=== PATIENT | female | born 2000 | race Caucasian/White ===

== ENCOUNTER 2023-04-28 16:54 | Emergency (ER) | payer OTHER ==
[2023-04-28 17:06] VITALS: BP 115/75; PULSE 87; RESP 20; TEMP 98.6; BMI 31.6
== END 2023-04-28 20:14 | disposition home or self-care (01) ==
LOC: JERFT 16:54
DX: S80.01XA Contusion of right knee, initial encounter (principal); S80.02XA Contusion of left knee, initial encounter; S59.901A Unspecified injury of right elbow, initial encounter; W19.XXXA Unspecified fall, initial encounter; Y93.9 Activity, unspecified; Y92.9 Unspecified place or not applicable
CPT/HCPCS: 73562-TC-LT-FY; 73562-TC-RT-FY; 84703; 99284-25

== ENCOUNTER 2023-12-20 22:03 | Emergency (ER) | payer BC, OTHER ==
[2023-12-20 22:20] VITALS: BP 117/56; PULSE 79; RESP 18; TEMP 98.2; BMI 30.7
[2023-12-20] MEDS ORDERED: ALBUTEROL SO4 2.5/IPRATROPIUM 0.5 INH SOL 3 ML VIAL.NEB. NEB ONE (23:02)
[2023-12-20] MEDS: ALBUTEROL SO4 2.5/IPRATROPIUM 0.5 INH SOL 3 ML VIAL.NEB. NEB SCH (23:07)
[2023-12-20] MEDS ORDERED: ALBUTEROL SO4 HFA INHALER IH ONE (23:17)
[2023-12-20] MEDS: ALBUTEROL SO4 HFA INHALER IH ONE (23:17)
== END 2023-12-20 23:46 | disposition home or self-care (01) ==
LOC: JER 22:03
PROC: 3E0F7GC Introduction of Other Therapeutic Substance into Respiratory Tract, Via Natural or Artificial Opening (ICD-10-PCS; principal; 2023-12-20)
PROC: 3E0F7GC Introduction of Other Therapeutic Substance into Respiratory Tract, Via Natural or Artificial Opening (ICD-10-PCS; 2023-12-20)
DX: R05.9 Cough, unspecified (principal); J45.909 Unspecified asthma, uncomplicated; J30.2 Other seasonal allergic rhinitis; Z20.822 Contact with and (suspected) exposure to COVID-19
CPT/HCPCS: 0241U-QW; 99284-25

== ENCOUNTER 2024-07-12 10:59 | Emergency (ER) | payer OTHER ==
[2024-07-12 11:10] VITALS: BP 130/81; PULSE 97; RESP 20; TEMP 98.6; BMI 32.8
[2024-07-12 15:53] LABS: HIV INTERPRETATION NEGATIVE (NEGATIVE)
== END 2024-07-12 14:11 | disposition home or self-care (01) ==
LOC: JER 10:59
DX: S09.90XA Unspecified injury of head, initial encounter (principal); R42 Dizziness and giddiness; R07.81 Pleurodynia; R10.11 Right upper quadrant pain; V43.52XA Car driver injured in collision with other type car in traffic accident, initial encounter; Y92.410 Unspecified street and highway as the place of occurrence of the external cause
CPT/HCPCS: 36415; 70450-TC; 86803; 87389; 99284-25